=== PATIENT | female | born 1975 | race Caucasian/White ===

== ENCOUNTER → 2016-08-27 | Outpatient (REF) | payer BC | LOC: M LAB REF 10:27 | PROVIDERS: ATTEND Nurse Practitioner Women's Health | DX: N39.0 Urinary tract infection, site not specified (principal) ==

== ENCOUNTER → 2016-10-22 | Outpatient (CLI) | payer BC ==
--- NOTE | 2016-10-22 14:43 | REP ---
Duplex extremity venous ultrasound: Left lower extremity. History: Left calf pain. Question DVT. Findings: The deep veins are anechoic and fully compressible from the groin to the popliteal fossa in the left lower extremity. Color flow imaging is homogeneous. Spectral Doppler interrogation demonstrates intact respiratory variation in flow and normal manual augmentation of flow. There is no evidence of deep vein thrombosis. Impression: Negative left lower extremity duplex venous ultrasound. No evidence of deep vein thrombosis. Signed by Keagan Hart MD 10/22/2016 02:36 P
== END ==
LOC: M RAD 13:44
PROVIDERS: ATTEND Nurse Practitioner Adult Health
DX: M79.662 Pain in left lower leg (principal)

== ENCOUNTER → 2016-11-11 | Outpatient (REF) | payer BC | LOC: M LAB REF 19:44 | PROVIDERS: ATTEND Physician Assistant | DX: R35.0 Frequency of micturition (principal) ==

== ENCOUNTER → 2017-04-28 | Outpatient (REF) | payer BC | LOC: M LAB REF 09:29 | PROVIDERS: ATTEND Physician Assistant | DX: N39.0 Urinary tract infection, site not specified (principal) ==

== ENCOUNTER → 2017-07-02 | Outpatient (REF) | payer BC | LOC: M LAB REF 16:17 | PROVIDERS: ATTEND Physician Assistant Medical | DX: J02.9 Acute pharyngitis, unspecified (principal) ==

== ENCOUNTER → 2017-09-02 | Outpatient (REF) | payer BC ==
[2017-09-02 21:01] LABS: AST/SGOT 29 U/L (7-37)
[2017-09-02 21:01] LABS: ALT/SGPT 50 U/L (12-78)
== END ==
LOC: M LABDRAW1 17:28
DX: R74.0 Nonspecific elevation of levels of transaminase and lactic acid dehydrogenase [LDH] (principal)
CPT/HCPCS: 84460

== ENCOUNTER → 2018-02-06 | Outpatient (REF) | payer BC ==
[2018-02-07 12:50] LABS: AMORPHOUS SEDIMENT LARGE (NEGATIVE); APPEARANCE, URINE TURBID (CLEAR); BACTERIA, URINE AUTO 1+ (NEGATIVE); BILIRUBIN, URINE AUTO NEGATIVE (NEGATIVE); BLOOD, URINE BLOOD 2+ (NEGATIVE); COLOR, URINE AMBER (YELLOW); GLUCOSE, URINE (UA) AUTO NEGATIVE (NEGATIVE); KETONE, URINE AUTO NEGATIVE (NEGATIVE); LEUKOCYTE ESTERASE, URINE AUTO 3+ (NEGATIVE); NITRITE, URINE AUTO NEGATIVE (NEGATIVE); PROTEIN, URINE AUTO NEGATIVE (NEGATIVE); RBC, URINE AUTO 0 /HPF (0-3); SPECIFIC GRAVITY URINE AUTO 1.025 (1.002-1.035); SQUAMOUS EPITHELIAL CELL UR AU 0 /HPF (0-6); WBC, URINE AUTO 30 /HPF (0-3)
== END ==
LOC: M LAB REF 11:56
DX: R39.89 Other symptoms and signs involving the genitourinary system (principal)
CPT/HCPCS: 81001

== ENCOUNTER → 2018-05-30 | Outpatient (CLI) | payer BC | LOC: M ADAMS 17:30 | DX: M25.561 Pain in right knee (principal) | CPT/HCPCS: 73564 ==

== ENCOUNTER → 2019-06-15 | Outpatient (REF) | payer BC | LOC: M LABDRAW1 13:03 | PROVIDERS: ATTEND Internal Medicine Gastroenterology | DX: K50.90 Crohn's disease, unspecified, without complications (principal) ==

== ENCOUNTER → 2019-06-18 | Outpatient (REF) | payer BC | LOC: M LAB REF 14:19 | PROVIDERS: ATTEND Internal Medicine Gastroenterology | DX: K50.90 Crohn's disease, unspecified, without complications (principal) ==

== ENCOUNTER → 2022-11-26 | Outpatient (CLI) | payer BC | LOC: M WHC 08:48 | PROVIDERS: ATTEND Advanced Practice Midwife | DX: Z12.31 Encounter for screening mammogram for malignant neoplasm of breast (principal) ==

== ENCOUNTER → 2023-01-07 | Outpatient (CLI) | payer BC | LOC: M RAD 12:50 | PROVIDERS: ATTEND Orthopaedic Surgery | DX: M25.561 Pain in right knee (principal) ==

== ENCOUNTER → 2025-04-15 | Outpatient (CLI) | payer BC ==
[2025-04-15 10:05] LABS: ALT/SGPT 73.0 U/L (7.0-40); AST/SGOT 46.0 U/L (<34)
== END ==
LOC: M LAB 08:47
DX: R94.5 Abnormal results of liver function studies (principal)

== ENCOUNTER → 2025-04-17 | Outpatient (CLI) | payer BC ==
[2025-04-17 19:29] LABS: ALT/SGPT 68.0 U/L (7.0-40); AST/SGOT 42.0 U/L (<34)
[2025-04-17 19:30] LABS: IRON (FE) 54 UG/DL (50-170); PERCENT SATURATION 18.2 % (13.2-45.0)
[2025-04-17 19:39] LABS: HEPATITIS B SURFACE ANTIBODY NEGATIVE (POSITIVE)
[2025-04-17 20:11] LABS: HEPATITIS C VIRUS ABY INDEX < 0.02 INDEX (<0.8)
[2025-04-19 08:32] LABS: T P ELECTROPHORESIS SO 7.5 g/dL (6.1-8.1)
[2025-04-19 12:35] LABS: HEPATITIS A IgG TOTAL REACTIVE (NON-REACTIVE)
[2025-04-21 16:52] LABS: LIVER-KIDNEY MICROSOMAL ABY <= 20.0 U (<=20.0)
[2025-04-21 17:32] LABS: ANTI-SMOOTH MUSCLE ANTIBODY < 20 U (<20)
[2025-04-22 10:17] LABS: ALPHA 1 ANTITRYPSIN 152 mg/dL (83-199); CERULOPLASMIN 22.0 mg/dL (14-48)
[2025-04-22 13:38] LABS: ANTI-MITOCHONDRIAL ANTIBODY NEGATIVE (NEGATIVE)
== END ==
LOC: M LAB 15:49
PROVIDERS: ATTEND Internal Medicine Gastroenterology
DX: K52.9 Noninfective gastroenteritis and colitis, unspecified (principal); K50.90 Crohn's disease, unspecified, without complications

== ENCOUNTER → 2025-04-18 | Outpatient (REF) | payer BC | LOC: M LAB REF 10:33 | PROVIDERS: ATTEND Internal Medicine Gastroenterology | DX: K50.90 Crohn's disease, unspecified, without complications (principal); R19.7 Diarrhea, unspecified ==

== ENCOUNTER → 2025-05-23 | Outpatient (CLI) | payer BC ==
[2025-05-23 18:24] LABS: CHOLESTEROL LEVEL 182.0 MG/DL (<200); CHOLESTEROL RISK RATIO 3.5 (<5); LDL CHOLESTEROL 91.7 MG/DL (<100); NON-HDL-C 130.1 MG/DL; TRIGLYCERIDES LEVEL 192.0 MG/DL (<150)
== END ==
LOC: M PLALAB 15:45
PROVIDERS: ATTEND Physician Assistant
DX: N95.1 Menopausal and female climacteric states (principal)